=== PATIENT | female | born 1975 | race Caucasian/White ===

== ENCOUNTER 2019-04-19 07:04 | Day surgery (SDC) | payer OTHER ==
[~2019-04-19 07:04] MED LIST: Lactated Ringers 1,000 ML IV SCH; Lidocaine 1%/Sod Bicarbonate in NS 8.4% 1 ML Syringe IDERM PRN; Sodium Chloride 0.9% 10 ML Syringe FLUSH PRN
[2019-04-19] MEDS ORDERED: Lidocaine 1% 4 ML ONE (07:28)
[2019-04-19] MEDS ORDERED: fentaNYL 100 MCG/2 ML SDV ONE (07:29)
[2019-04-19] MEDS ORDERED: Propofol 200 MG/20 ML SDV ONE (07:29)
[2019-04-19] MEDS ORDERED: Dexamethasone 4 MG/ML 5 ML MDV ONE (07:30)
[2019-04-19] MEDS ORDERED: Ketorolac 30 MG/ML SDV ONE (07:30)
[2019-04-19] MEDS ORDERED: Ondansetron 4 MG/2 ML SDV ONE (07:30)
--- NOTE | 2019-04-19 07:56 | PCM.PREANE ---
Preanesthetic Assessment - Procedure Proposed Procedure: Hysteroscopy with D&C and possible Endometrial Ablation - Anesthesia/Transfusion/Family Hx Anesthesia History: Prior Anesthesia Without Reaction Family History of Anesthesia Reaction: No Transfusion History: No Prior Transfusion(s) Anesthesia/Transfusion Comment: No previous difficulties with anesthesia or with intubation per patient - Review of Systems General: No Symptoms Pulmonary: No Symptoms Cardiovascular: No Symptoms Gastrointestinal: No Symptoms Neurological: No Symptoms Other: Reports: None - Physical Assessment NPO Status Date: 04/18/19 NPO Status Time: 20:00 ASA Class: 2 Mental Status: Alert & Oriented x3 Airway Class: Mallampati = 4 Dentition: Reports: Normal Dentition Thyro-Mental Finger Breadths: 3 Mouth Opening Finger Breadths: 2 (earlier this Summer she had oral surgery and ever since has had TMJ pain) ROM/Head Extension: Full Lungs: Clear to Auscultation, Normal Respiratory Effort Cardiovascular: Regular Rate, Regular Rhythm - Lab Values: Laboratory Last Values WBC 4.19 K/mm3 (3.98-10.04) 04/19/19 07:37 RBC 3.78 M/mm3 (3.98-5.22) L 04/19/19 07:37 Hgb 11.9 gm/dl (11.2-15.7) 04/19/19 07:37 Hct 36.6 % (34.1-44.9) 04/19/19 07:37 MCV 96.8 fl (79.4-94.8) H 04/19/19 07:37 MCH 31.5 pg (25.6-32.2) 04/19/19 07:37 MCHC 32.5 g/dl (32.2-35.5) 04/19/19 07:37 RDW Std Deviation 46.2 fL (36.4-46.3) 04/19/19 07:37 Plt Count 244 K/mm3 (182-369) 04/19/19 07:37 MPV 9.8 fl (9.4-12.3) 04/19/19 07:37 Neut % (Auto) 44.3 % (34.0-71.1) 04/19/19 07:37 Lymph % (Auto) 38.4 % (19.3-51.7) 04/19/19 07:37 Alexander % (Auto) 10.7 % (4.7-12.5) 04/19/19 07:37 Eos % (Auto) 3.3 (0.7-5.8) 04/19/19 07:37 Baso % (Auto) 3.3 % (0.1-1.2) H 04/19/19 07:37 Neut # (Auto) 1.85 K/mm3 (1.56-6.13) 04/19/19 07:37 Lymph # (Auto) 1.61 K/mm3 (1.18-3.74) 04/19/19 07:37 Alexander # (Auto) 0.45 K/mm3 (0.24-0.36) H 04/19/19 07:37 Eos # (Auto) 0.14 K/mm3 (0.04-0.36) 04/19/19 07:37 Baso # (Auto) 0.14 K/mm3 (0.01-0.08) H 04/19/19 07:37 Urine HCG, Qual Negative (NEGATIVE) 04/19/19 07:21 - Allergies Allergies/Adverse Reactions: Allergies Allergy/AdvReac Type Severity Reaction Status Date / Time No Known Allergies Allergy Verified 04/18/19 16:13 - Acknowledgements Anesthesia Type Planned: General Anesthesia Pt an Appropriate Candidate for the Planned Anesthesia: Yes Alternatives and Risks of Anesthesia Discussed w Pt/Guardian: Yes Pt/Guardian Understands and Agrees with Anesthesia Plan: Yes PreAnesthesia Questionnaire HEENT History: Reports: Other (See Below) Other HEENT History: rhytides, has contacts Cardiovascular History: Reports: None Respiratory History: Reports: Asthma Gastrointestinal History: Reports: Other (See Below) Other Gastrointestinal History: epigastric pain, umbilical hernia Genitourinary History: Reports: Other (See Below) Other Genitourinary History: breast reduction PEST CONTROL PILOT History: Reports: Spontaneous , Other (See Below) Other OB/BYN History: Musculoskeletal History: Reports: None Neurological History: Reports: Migraines Psychiatric History: Reports: ADHD, Anxiety, Depression Hematologic History: Reports: None Immunologic History: Reports: None Oncologic (Cancer) History: Reports: None Dermatologic History: Reports: Cellulitis - Past Surgical History Head Surgeries/Procedures: Reports: None Cardiovascular Surgical History: Reports: None Respiratory Surgical History: Reports: None GI Surgical History: Reports: None Female Surgical History: Reports: Breast Reduction, LEEP Endocrine Surgical History: Reports: Thyroidectomy Neurological Surgical History: Reports: None Musculoskeletal Surgical History: Reports: Shoulder Surgery Oncologic Surgical History: Reports: None Dermatological Surgical History: Reports: Other (See Below) - SUBSTANCE USE Smoking Status *Q: Never Smoker Recreational Drug Use History: No - HOME MEDS Home Medications: Home Meds Lisdexamfetamine Dimesylate [Vyvanse] 30 mg PO DAILY 04/18/19 [History] SUMAtriptan Succinate [Imitrex] 100 mg PO ASDIRECTED PRN 04/18/19 [History] buPROPion HCl [Wellbutrin Xl] 300 mg PO DAILY 04/18/19 [History] - CURRENT (IN HOUSE) MEDS Current Meds: Current Medications Lactated Ringer's (Ringers, Lactated) 1,000 mls @ 125 mls/hr IV ASDIRECTED SHASTA Stop: 04/19/19 23:00 Last Admin: 04/19/19 07:35 Dose: 125 mls/hr Lidocaine/Sodium Bicarbonate (Buffered Lidocaine 1% In Ns 8.4%) 0.25 ml IDERM ONETIME PRN PRN Reason: Prior to IV Start Stop: 04/19/19 23:00 Sodium Chloride (Saline Flush) 10 ml FLUSH ASDIRECTED PRN PRN Reason: Keep Vein Open Stop: 04/19/19 23:00 Discontinued Medications Dexamethasone (Dexamethasone) Confirm Administered Dose 20 mg .ROUTE .STK-MED ONE Stop: 04/19/19 07:31 Fentanyl (Sublimaze) Confirm Administered Dose 100 mcg .ROUTE .STK-MED ONE Stop: 04/19/19 07:30 Lactated Ringer's (Ringers, Lactated) 1,000 mls @ 125 mls/hr IV ASDIRECTED SHASTA Lidocaine HCl (Xylocaine-Mpf 1%) Confirm Administered Dose 4 mls @ as directed .ROUTE .STK-MED ONE Stop: 04/19/19 07:29 Ketorolac Tromethamine (Toradol) Confirm Administered Dose 30 mg .ROUTE .STK- MED ONE Stop: 04/19/19 07:31 Lidocaine/Sodium Bicarbonate (Buffered Lidocaine 1% In Ns 8.4%) 0.25 ml IDERM ONETIME PRN PRN Reason: Prior to IV Start Ondansetron HCl (Zofran) Confirm Administered Dose 4 mg .ROUTE .STK-MED ONE Stop: 04/19/19 07:31 Propofol (Diprivan 20 Ml) Confirm Administered Dose 200 mg .ROUTE .STK-MED ONE Stop: 04/19/19 07:30 Sodium Chloride (Saline Flush) 10 ml FLUSH ASDIRECTED PRN PRN Reason: Keep Vein Open
[2019-04-19] MEDS ORDERED: ePHEDrine/Normal Saline 25 MG/5 ML Syringe ONE (08:48)
[2019-04-19] MEDS ORDERED: ceFAZolin 1 GM Vial ONE (08:58)
[2019-04-19] MEDS ORDERED: Ondansetron 4 MG/2 ML SDV IVPUSH PRN (09:23)
--- NOTE | 2019-04-19 09:33 | PCM.OPNOTE ---
- General Post-Op/Procedure Note Date of Surgery/Procedure: 04/19/19 Operative Procedure(s): Hysteroscopy, dilation curettage, NovaSure endometrial ablation Findings: Bimanual exam uterus to be slightly enlarged. It was anteflexed. Freely mobile. The pelvic floor was was reasonably relaxed. Adnexa within normal limits. The uterus sounded to 10 cm with the length of the uterine cavity 7 cm, cervix 3 cm. Width the uterine cavity was 4.2 centimeters. Power was 150 W. Therapy duration 65 seconds. Pre Op Diagnosis: 1. Menorrhagia. 2. Dysmenorrhea Post-Op Diagnosis: Same Anesthesia Technique: General LMA Primary Surgeon: Abdiel Littlejohn Anesthesia Provider: Sammy Cartagena Pathology: Endometrial curettings Fluid Replacement, Intraop: 1,000 EBL in mLs: 5 Complications: None Condition: Good Free Text/Narrative:: Surgery duration: 14 minutes Procedure: Patient was instructed as to procedure, its risks, benefits, limitations and follow-up and had signed a consent for surgery. The patient is taken the operative placed in a supine position on the operating table. She received 2 g of Ancef preoperatively for infection prophylaxis and had sequential compression stockings in place for DVT prophylaxis. Patient was given general anesthesia and an LMA was placed for ventilation. She is placed in a dorsal lithotomy position and prepped and draped in usual fashion. An exam under anesthesia was performed. Findings as described above. A weighted speculum was placed in the vagina. Cervix is visualized. It was grasped anteriorly with a single-tooth tenaculum. Uterus was then sounded to a depth of 10 cm. The cervix was dilated to allow passage of a 5 mm 12 rigid hysteroscope. This was placed without problem and normal saline was used as a distending medium. The endometrial cavity was visualized. Findings as described above. Decision was made to proceed with polypectomy. Polyp forceps was introduced and polyps were removed. After this is performed a D&C was performed. Moderate amount tissue was obtained. Minimal bleeding was encountered. Endometrial ablation was then performed. Should be noted consent was appropriately signed by the patient prior to the procedure. The cervix was dilated to allow placement of the NovaSure endometrial apparatus. Uterine cavity was 7 cm in length. Therapy last 1 minute and 5 seconds. Hysteroscope was then placed back into the endometrial cavity. Blood was flushed out and the findings were consistent with a cauterized endometrial cavity. At this point the scope was removed. The vagina was cleared of old blood , the cervix was released and the weighted speculum was removed. Patient was returned to supine position and awakened from general anesthesia. She tolerated the procedure well and operating room in good condition.
--- NOTE | 2019-04-19 09:37 | PCM.POSTAN ---
POST ANESTHESIA ASSESSMENT - MENTAL STATUS Mental Status: Alert, Oriented - VITAL SIGNS Vital Signs: Last Vital Signs Temp 36.9 C 04/19/19 07:20 Pulse 68 04/19/19 07:20 Resp 16 04/19/19 07:20 BP 107/72 04/19/19 07:20 Pulse Ox 97 04/19/19 07:20 - RESPIRATORY Respiratory Status: Respiratory Rate WNL, Airway Patent, O2 Saturation Stable - CARDIOVASCULAR CV Status: Pulse Rate WNL, Blood Pressure Stable - GASTROINTESTINAL GI Status: No Symptoms - PAIN Pain Score: 0 - POST OP HYDRATION Hydration Status: Adequate & Stable - OBSERVATIONS Free Text/Narrative:: Routine LMA general. No problem with either insertion or removal of LMA despite history of TMJ
--- NOTE | 2019-04-19 10:16 | PCM48HPAN ---
Post Anesthesia Note - EVALUATION WITHIN 48HRS OF ANESTHETIC Vital Signs in Normal Range: Yes Patient Participated in Evaluation: Yes Respiratory Function Stable: Yes Airway Patent: Yes Cardiovascular Function Stable: Yes Hydration Status Stable: Yes Pain Control Satisfactory: Yes Nausea and Vomiting Control Satisfactory: Yes (Mild nausea. No vomitting. Patient doesn't want any antiemtic treatment.) Mental Status Recovered: Yes Vital Signs: Last Vital Signs Temp 36.9 C 04/19/19 10:01 Pulse 75 04/19/19 10:01 Resp 20 04/19/19 10:01 BP 105/65 04/19/19 10:01 Pulse Ox 96 04/19/19 10:01 - COMMENTS/OBSERVATIONS Free Text/Narrative:: Routine recovery. No complications. No concerns.
[2019-04-19] MEDS ORDERED: Acetaminophen 325 MG Tab PO ONE (11:15)
[2019-04-19] MEDS ORDERED: Ketorolac 30 MG/ML SDV IVPUSH ONE (13:30)
[2019-04-19] MEDS ORDERED: Ibuprofen 600 MG Tab PO PRN (21:30)
== END 2019-04-19 11:20 | disposition home or self-care (01) ==
LOC: JD.SDS 07:04
PROVIDERS: ATTEND Obstetrics & Gynecology
DX: N92.0 Excessive and frequent menstruation with regular cycle (principal); N94.6 Dysmenorrhea, unspecified; J45.909 Unspecified asthma, uncomplicated; G43.909 Migraine, unspecified, not intractable, without status migrainosus; J30.2 Other seasonal allergic rhinitis; F41.9 Anxiety disorder, unspecified; F33.0 Major depressive disorder, recurrent, mild; Z79.899 Other long term (current) drug therapy
CPT/HCPCS: 36415; 58563; 81025; 85025; A9270; J0690; J1100; J1885; J2001; J2405; J2704; J3010; J7050; J7120

== ENCOUNTER 2023-12-06 21:59 | Inpatient (IN) | payer BC ==
[2023-12-06] MEDS: Sodium Chloride 0.9% 1,000 ML IV ONE (23:38)
[2023-12-06] MEDS: HYDROmorphone 1 MG/ML Syringe IVPUSH ONE (23:39)
[2023-12-06] MEDS: Sodium Chloride 0.9% 10 ML Syringe FLUSH PRN (23:40)
[2023-12-06 23:51] LABS: BASOPHILS PERCENT AUTO 0.4 % (0.0-1.0); EOSINOPHILS ABSOLUTE AUTO 0.1 K/mm3 (0.0-0.4); EOSINOPHILS PERCENT AUTO 0.6 % (0.0-6.0); HEMATOCRIT 37.7 % (37.0-47.0); HEMOGLOBIN 12.4 gm/dl (12.0-16.0); IMMATURE GRAN ABSOLUTE AUTO 0.03 K/mm3 (0.00-0.05); IMMATURE GRAN PERCENT AUTO 0.3 % (0.0-0.4); LYMPHOCYTES ABSOLUTE AUTO 1.1 K/mm3 (1.0-4.8); LYMPHOCYTES PERCENT AUTO 9.5 % (24.0-44.0); MEAN CORPUSCULAR HEMOGLOBIN 32.1 pg (28.0-32.0); MEAN CORPUSCULAR HGB CONC 32.9 g/dl (32.0-36.0); MEAN CORPUSCULAR VOLUME 97.7 fl (83.0-99.0); MEAN PLATELET VOLUME 9.9 fl (9.4-12.3); MONOCYTES ABSOLUTE AUTO 0.7 K/mm3 (0.0-0.8); MONOCYTES PERCENT AUTO 6.6 % (0.0-8.0); NEUTROPHILS ABSOLUTE AUTO 9.2 K/mm3 (1.8-7.7); NEUTROPHILS PERCENT AUTO 82.6 % (41.0-71.0); PLATELET COUNT,PLT 234 K/mm3 (150-400); RED BLOOD CELL COUNT 3.86 M/mm3 (4.10-5.30); WHITE BLOOD CELL COUNT,WBC 11.13 K/mm3 (3.9-11.3)
[2023-12-06] MEDS: Ondansetron 4 MG/2 ML SDV ONE (23:52)
[2023-12-07 00:16] LABS: A/G RATIO 1.2 (1-2); ALBUMIN 4.1 g/dl (3.4-5.0); ANION GAP 7.5 (5-15); BILIRUBIN TOTAL 1.3 mg/dL (0.2-1.0); CALCIUM 9.3 mg/dL (8.5-10.1); EST CRCL DRUG DOSING (CG) 67.89 mL/min; POTASSIUM,K 3.5 mEq/L (3.5-5.1); PROTEIN TOTAL,TP 7.4 g/dl (6.4-8.2)
[2023-12-07] MEDS: Iopamidol 612 MG/ML 100 ML Bottle IVPUSH ONE (00:33)
[2023-12-07 00:40] LABS: APPEARANCE,URINE CLEAR (Clear); BILIRUBIN,URINE NEGATIVE (Negative); COLOR,URINE YELLOW (Yellow); GLUCOSE,URINE NEGATIVE (Negative); KETONES,URINE TRACE (Negative); LEUKOCYTE ESTERASE,URINE NEGATIVE (Negative); NITRITE,URINE NEGATIVE (Negative); OCCULT BLOOD,URINE NEGATIVE (Negative); PROTEIN,URINE NEGATIVE (Negative); UROBILINOGEN,URINE 0.2 (0.2-1.0)
[2023-12-07] MEDS ORDERED: Naloxone 0.4 MG/ML SDV IVPUSH PRN ×2 (01:15→04:54)
[2023-12-07] MEDS: HYDROmorphone 1 MG/ML Syringe IVPUSH ONE ×2 (01:46→05:01)
[2023-12-07] MEDS: Piperacillin/Tazobactam 4.5 GM in Sodium Chloride 0.9% 100 ML IV ONE (01:47)
[2023-12-07] MEDS: Sodium Chloride 0.9% 1,000 ML IV ONE (01:47)
[2023-12-07] MEDS: SUMAtriptan 6 MG/0.5 ML SDV SUBCUT ONE (05:24)
[2023-12-07] MEDS: Ondansetron 4 MG/2 ML SDV IVPUSH ONE (06:02)
[2023-12-07] MEDS: Ketorolac 15 MG/ML SDV IVPUSH ONE (06:02)
[2023-12-07] MEDS ORDERED: Midazolam 1 MG/ML 2 ML SDV ONE (07:20)
[2023-12-07] MEDS ORDERED: Lidocaine 1% 2 ML ONE (07:21)
[2023-12-07] MEDS ORDERED: Lidocaine 1% PF 2 ML SDV ONE (07:21)
[2023-12-07] MEDS ORDERED: fentaNYL 250 MCG/5 ML SDV ONE (07:21)
[2023-12-07] MEDS ORDERED: Propofol 200 MG/20 ML SDV ONE ×2 (07:21)
[2023-12-07] MEDS ORDERED: Rocuronium 50 MG/5 ML Vial ONE (07:21)
[2023-12-07] MEDS ORDERED: Lactated Ringers 1,000 ML ONE (07:27)
[2023-12-07] MEDS: HYDROmorphone 1 MG/ML Syringe ONE (07:40)
[2023-12-07] MEDS: Ketorolac 30 MG/ML SDV IVPUSH ONE (07:46)
[2023-12-07] MEDS ORDERED: Ropivacaine 0.5% 5 MG/ML 30 ML SDV ONE (08:19)
[2023-12-07] MEDS ORDERED: Lidocaine 2% 20 ML MDV ONE (08:19)
[2023-12-07] MEDS ORDERED: fentaNYL 100 MCG/2 ML SDV IVPUSH PRN (08:24)
[2023-12-07] MEDS ORDERED: HYDROmorphone 0.5 MG/0.5 ML Syringe IVPUSH PRN (08:24)
[2023-12-07] MEDS ORDERED: Ondansetron 4 MG/2 ML SDV IVPUSH PRN ×2 (08:24→08:38)
[2023-12-07] MEDS ORDERED: Sodium Chloride 0.9% 1,000 ML IV SCH (08:45)
[2023-12-07] MEDS: HYDROmorphone 0.5 MG/0.5 ML Syringe IVPUSH PRN ×2 (09:40→21:02)
[2023-12-07] MEDS: Ondansetron 4 MG/2 ML SDV IVPUSH PRN (09:47)
[2023-12-07] MEDS: Lactated Ringers 1,000 ML IV SCH (09:54)
[2023-12-07] MEDS: Piperacillin/Tazobactam 4.5 GM in Sodium Chloride 0.9% 100 ML IV SCH (09:58)
[2023-12-07] MEDS: Heparin Sodium 5,000 Units/ML Vial SUBCUT SCH (10:01)
[2023-12-07] MEDS ORDERED: Sugammadex Sodium 200 MG/2 ML VIAL IV ONE (10:42)
[2023-12-07] MEDS: Lidocaine 1% 30 ML SDV ONE (11:10)
[2023-12-07] MEDS: EPINEPHrine 1 MG/ML SDV ONE (11:10)
[2023-12-07] MEDS: Bupivacaine 0.5% 30 ML SDV ONE (11:10)
[2023-12-07] MEDS: Acetaminophen Soln 650 MG/20.3 ML UD Cup PO PRN (14:25)
[2023-12-07] MEDS: Promethazine 25 MG Tab PO PRN (14:35)
[2023-12-07] MEDS: Ketorolac 30 MG/ML SDV IVPUSH PRN (17:33)
[2023-12-07] MEDS: Sodium Chloride 0.9% 500 ML IV ONE (20:57)
[2023-12-08 05:13] LABS: BASOPHILS PERCENT AUTO 0.6 % (0.0-1.0); EOSINOPHILS ABSOLUTE AUTO 0.1 K/mm3 (0.0-0.4); EOSINOPHILS PERCENT AUTO 2.4 % (0.0-6.0); HEMATOCRIT 30.8 % (37.0-47.0); IMMATURE GRAN ABSOLUTE AUTO 0.01 K/mm3 (0.00-0.05); IMMATURE GRAN PERCENT AUTO 0.2 % (0.0-0.4); LYMPHOCYTES ABSOLUTE AUTO 1.6 K/mm3 (1.0-4.8); LYMPHOCYTES PERCENT AUTO 30.6 % (24.0-44.0); MEAN CORPUSCULAR HGB CONC 31.8 g/dl (32.0-36.0); MEAN CORPUSCULAR VOLUME 100.7 fl (83.0-99.0); MEAN PLATELET VOLUME 10.7 fl (9.4-12.3); MONOCYTES ABSOLUTE AUTO 0.4 K/mm3 (0.0-0.8); MONOCYTES PERCENT AUTO 8.1 % (0.0-8.0); NEUTROPHILS ABSOLUTE AUTO 3.1 K/mm3 (1.8-7.7); NEUTROPHILS PERCENT AUTO 58.1 % (41.0-71.0); PLATELET COUNT,PLT 132 K/mm3 (150-400); RED BLOOD CELL COUNT 3.06 M/mm3 (4.10-5.30); WHITE BLOOD CELL COUNT,WBC 5.32 K/mm3 (3.9-11.3)
[2023-12-08 06:04] LABS: HEMOGLOBIN 9.8 gm/dl (12.0-16.0)
[2023-12-08 06:05] LABS: ANION GAP 10.4 (5-15); BUN/CREATININE RATIO 6.7 (14-18); CREATININE 0.9 mg/dL (0.55-1.02); EST CRCL DRUG DOSING (CG) 75.44 mL/min; MAGNESIUM 2.1 mg/dL (1.8-2.4); PHOSPHORUS 2.5 mg/dL (2.6-4.7); POTASSIUM,K 3.4 mEq/L (3.5-5.1)
[2023-12-08 06:21] LABS: CALCIUM 7.8 mg/dL (8.5-10.1)
== END 2023-12-08 08:42 | disposition home or self-care (01) | DRG 234 ==
LOC: JD.ED 21:59 → JD.MS 12-07 06:10
PROVIDERS: ADMIT Surgery; ATTEND Surgery
PROC: 0DTJ4ZZ Resection of Appendix, Percutaneous Endoscopic Approach (ICD-10-PCS; principal; 2023-12-07 09:00)
DX: K35.30 Acute appendicitis with localized peritonitis, without perforation or gangrene (principal); J45.909 Unspecified asthma, uncomplicated; G43.909 Migraine, unspecified, not intractable, without status migrainosus; F41.9 Anxiety disorder, unspecified; F32.A Depression, unspecified; E89.0 Postprocedural hypothyroidism; Z79.899 Other long term (current) drug therapy; Z98.890 Other specified postprocedural states; Z87.891 Personal history of nicotine dependence
CPT/HCPCS: 36415; 74177; 74177-26; 80048; 80053; 81003; 83690; 83735; 84100; 84703; 85025; 93005; 93010; 96361; 96365; 96372; 96375; 96376; 99285; 99285-25; A9270-GY; J0171; J0665; J1170; J1644; J1885; J2001; J2250; J2405; J2543; J2704; J2795; J3010; J3030; J3490; J7030; J7120; J8597; Q9967